=== PATIENT | male | born 1960 | race African-American/Black ===

== ENCOUNTER 2023-02-19 11:06 | Inpatient (IN) | payer BC, OTHER ==
[2023-02-19 12:11] VITALS: BMI 23.7
[2023-02-19] MEDS ORDERED: BENZOCAINE/MENTHOL (CHLORASEPTIC ) LOZENGE MM PRN (15:02)
[2023-02-19] MEDS ORDERED: guaiFENesin 600 MG TABLET.ER (FP) PO PRN (15:02)
[2023-02-19] MEDS ORDERED: ONDANSETRON *ODT* 4 MG TABLET SL PRN (15:02)
[2023-02-19] MEDS ORDERED: LOPERAMIDE HCL 2 MG CAPSULE PO PRN (15:02)
[2023-02-19] MEDS ORDERED: NICOTINE 10 MG CARTRIDGE (INHALER) IH PRN (15:02)
[2023-02-19] MEDS ORDERED: NALOXONE HCL (KLOXXADO) 8 MG SPRAY NS PRN (15:02)
[2023-02-19] MEDS ORDERED: POLYETHYLENE GLYCOL (HEALTHYLAX) 3350 17 GM PACKET PO PRN (15:02)
[2023-02-19] MEDS ORDERED: ACETAMINOPHEN 325 MG TABLET (FP) PO PRN (15:02)
[2023-02-19] MEDS ORDERED: NALOXONE HCL 0.4 MG/ML VIAL IM PRN (15:02)
[2023-02-19] MEDS ORDERED: MAGNESIUM HYDROX 2400MG/30ML ORAL SUSPENSION 30 ML CUP PO PRN (15:02)
[2023-02-19] MEDS ORDERED: BISMUTH SUBSALICYLATE 524 MG/30 ML PO PRN (15:02)
[2023-02-19] MEDS ORDERED: MAG HYDROX/AL HYDROX/SIMETH 30 ML UNIT-DOSE CUP PO PRN (15:02)
[2023-02-19] MEDS ORDERED: IBUPROFEN 400 MG TABLET (FP) PO PRN (15:02)
[2023-02-19] MEDS ORDERED: IBUPROFEN 600 MG TABLET (FP) PO PRN (15:02)
[2023-02-19] MEDS ORDERED: BENZONATATE 200 MG CAPSULE PO PRN (15:02)
[2023-02-19] MEDS ORDERED: methaDONE HCL 10 MG TABLET (FOR DETOX USE ONLY) PO ONE ×2 (16:00→17:15)
[2023-02-19] MEDS: hydrOXYzine PAMOATE 25 MG CAPSULE (FP) PO PRN (20:33)
[2023-02-19] MEDS: cloNIDine HCL 0.1 MG TABLET PO PRN (20:33)
[2023-02-19] MEDS: METHOCARBAMOL 500 MG TABLET PO PRN (20:33)
[2023-02-19] MEDS: THIAMINE HCL 100 MG TABLET (FP) PO SCH (22:29)
[2023-02-19] MEDS: MELATONIN 5 MG TABLETS PO SCH (22:29)
[2023-02-20] MEDS: hydrOXYzine PAMOATE 25 MG CAPSULE (FP) PO PRN ×2 (09:52→17:27)
[2023-02-20] MEDS: METHOCARBAMOL 500 MG TABLET PO PRN ×2 (09:52→22:07)
[2023-02-20] MEDS: PRENATAL VITAMINS W/ FOLIC ACID TABLET (FP) PO SCH (09:54)
[2023-02-20] MEDS: cloNIDine HCL 0.1 MG TABLET PO PRN ×2 (17:27→22:07)
[2023-02-20] MEDS: MELATONIN 5 MG TABLETS PO SCH (22:07)
[2023-02-20] MEDS: THIAMINE HCL 100 MG TABLET (FP) PO SCH (22:07)
[2023-02-20] MEDS: DICYCLOMINE HCL 10 MG CAPSULE PO PRN (22:07)
[2023-02-21] MEDS: cloNIDine HCL 0.1 MG TABLET PO PRN (06:40)
[2023-02-21] MEDS ORDERED: methaDONE HCL 10 MG TABLET (FOR DETOX USE ONLY) PO ONE (10:00)
[2023-02-21] MEDS: PRENATAL VITAMINS W/ FOLIC ACID TABLET (FP) PO SCH (10:10)
[2023-02-21 11:55] LABS: POTASSIUM 4.1 mmol/L (3.5-5.1)
[2023-02-21 12:04] LABS: BLOOD UREA NITROGEN 10.5 mg/dL (7-18)
[2023-02-21 12:05] LABS: ALBUMIN 3.1 g/dl (3.4-5.0); HEMATOCRIT 42.8 % (35.4-49); HEMOGLOBIN 14.7 GM/dL (11.7-16.9); MCH 28.5 pg (25.7-33.7); MCHC 34.4 g/dl (32.0-35.9); MEAN CELL VOLUME 82.8 fl (80-96); MEAN PLT VOLUME 9.8 fl (7.5-11.1); PLATELET COUNT 247 10^3/uL (134-434); RBC 5.18 M/mm3 (4.00-5.60); RDW 14.1 % (11.9-15.9)
[2023-02-21 12:08] LABS: CREATININE 1.1 mg/dL (0.55-1.3)
[2023-02-21 12:09] LABS: BILIRUBIN,TOTAL 0.4 mg/dL (0.2-1); TOT PROT 6.1 g/dl (6.4-8.2)
[2023-02-21] MEDS: METHOCARBAMOL 500 MG TABLET PO PRN ×2 (13:19→19:11)
[2023-02-21] MEDS: hydrOXYzine PAMOATE 25 MG CAPSULE (FP) PO PRN (14:13)
[2023-02-21 17:25] LABS: PH,URINE 7.5 (5.0-8.0); URINE APPEARANCE CLEAR; URINE BILIRUBIN NEGATIVE (NEGATIVE); URINE COLOR YELLOW; URINE GLUCOSE (UA) NEGATIVE (NEGATIVE); URINE KETONE NEGATIVE (NEGATIVE); URINE LEUK ESTERASE NEGATIVE (NEGATIVE); URINE NITRITE NEGATIVE (NEGATIVE); URINE PROTEIN TRACE (NEGATIVE)
[2023-02-21] MEDS: DICYCLOMINE HCL 10 MG CAPSULE PO PRN (19:11)
[2023-02-21] MEDS: diazePAM 5 MG TABLET PO PRN (19:11)
[2023-02-21] MEDS: MELATONIN 5 MG TABLETS PO SCH (22:09)
[2023-02-21] MEDS: THIAMINE HCL 100 MG TABLET (FP) PO SCH (22:09)
[2023-02-22] MEDS: diazePAM 5 MG TABLET PO PRN (07:30)
[2023-02-22 08:57] VITALS: BP 121/69; PULSE 79; RESP 16; TEMP 98.3
[2023-02-22] MEDS: PRENATAL VITAMINS W/ FOLIC ACID TABLET (FP) PO SCH (09:59)
[2023-02-22] MEDS ORDERED: amLODIPine BESYLATE 10 MG TABLET (FP) PO SCH (10:00)
[2023-02-22] MEDS: METHOCARBAMOL 500 MG TABLET PO PRN (10:42)
[2023-02-22] MEDS: DICYCLOMINE HCL 10 MG CAPSULE PO PRN (10:42)
[2023-02-23] MEDS ORDERED: methaDONE HCL 10 MG TABLET (FOR DETOX USE ONLY) PO ONE (10:00)
== END 2023-02-22 11:56 | disposition left against medical advice (07) | DRG 894 ==
LOC: YASAS 11:06 → Y3N 16:41
PROVIDERS: ADMIT Allergy & Immunology; ATTEND Allergy & Immunology
PROC: HZ2ZZZZ Detoxification Services for Substance Abuse Treatment (ICD-10-PCS; principal; 2023-02-19)
DX: F10.230 Alcohol dependence with withdrawal, uncomplicated (principal); F12.10 Cannabis abuse, uncomplicated; F17.210 Nicotine dependence, cigarettes, uncomplicated; F31.9 Bipolar disorder, unspecified; E86.0 Dehydration; I10 Essential (primary) hypertension; Z91.148 Patient's other noncompliance with medication regimen for other reason; Z86.19 Personal history of other infectious and parasitic diseases
CPT/HCPCS: 36415; 80053; 81003; 85027; 86780; 93005; 93010; C9803-CS; U0003; U0005